=== PATIENT | male | born 1990 | race Hispanic/Latino ===

== ENCOUNTER → 2022-07-30 | Day surgery (SDC) | payer BC ==
[~2022-07-30] MED LIST: FENTANYL CITRATE/PF 100MCG/2 ML INJ ONE; MILK THISTLE175 M2 PO; OMEPRAZOLE40 MG PO; PROBIOTIC & AC1 EACH PO
[2022-07-30 12:50] VITALS: BP 124/87
== END | disposition home or self-care (01) ==
LOC: OR 10:08
PROVIDERS: ATTEND Internal Medicine Gastroenterology
DX: K29.70 Gastritis, unspecified, without bleeding (principal); I85.00 Esophageal varices without bleeding; K20.90 Esophagitis, unspecified without bleeding; K21.9 Gastro-esophageal reflux disease without esophagitis; K76.0 Fatty (change of) liver, not elsewhere classified; K59.09 Other constipation; Z71.3 Dietary counseling and surveillance; F41.9 Anxiety disorder, unspecified; Z68.27 Body mass index [BMI] 27.0-27.9, adult
CPT/HCPCS: 43239; C9113; J3010

== ENCOUNTER → 2025-02-11 | Outpatient (REF) | payer OTHER ==
[~2025-02-11] MED LIST changes: -FENTANYL CITRATE/PF 100MCG/2 ML INJ ONE; +ONDANSETRON HCL4 MG PO; +PANTOPRAZOLE SO40 MG PO; +SINCALIDE 5 MCG VIAL IJ ONE; +WATER STERILE 10 ML VIAL ONE
== END ==
LOC: NM 08:15
PROVIDERS: ATTEND Nurse Practitioner
DX: R10.11 Right upper quadrant pain (principal); K82.8 Other specified diseases of gallbladder
CPT/HCPCS: 78227; A9537